=== PATIENT | female | born 1990 | race Caucasian/White ===

== ENCOUNTER 2017-11-14 11:02 | Emergency (ER) | payer OTHER ==
[~2017-11-14] VITALS: Ht 160 cm; Wt 60.0 kg
[2017-11-14 11:09] VITALS: BP 176/90; PULSE 95; RESP 18; TEMP 98.4; O2SAT 100
[2017-11-14] MEDS ORDERED: [UNRECOGNIZED DRUG - REMARK] (12:07)
[2017-11-14] MEDS ORDERED: PRENATAL VIT (12:07)
[2017-11-14 13:53] LABS: BACTERIA, URINE RARE /hpf; BILIRUBIN, URINE NEG (NEG); BLOOD, URINE MOD (NEG); GLUCOSE,URINE NEG (NEG); KETONE, URINE 10 mg/dL (NEG); MUCUS URINE MOD /lpf (OCC); NITRITE,URINE NEG (NEG); PH, URINE 5.5 (5.0-8.5); SQUAMOUS EPITHELIAL CELL URINE 3 /hpf (0-5); URINE COLOR YELLOW (YELLW/STRAW); URINE LEUKOCYTE ESTERASE NEG (NEG)
--- NOTE | 2017-11-14 15:04 | RADRPT ---
EXAM DATE/TIME: 11/14/2017 13:34 [place] COMPARISON: No previous studies available for comparison. INDICATIONS : Pelvic pain and bleeding. LAB(S): [facility] MEDICAL HISTORY : Thyroid disease. SURGICAL HISTORY : None. ENCOUNTER: Initial ACUITY: 1 day PAIN SCORE: 3/10 LOCATION: Bilateral pelvis MEASUREMENTS: UTERUS: 7.8 x 4.7 x 4.1 cm ENDOMETRIAL STRIPE: 7 mm RIGHT OVARY: 2.5 x 2.5 x 2.1 cm LEFT OVARY: 3.2 x 2.3 x 1.7 cm FREE FLUID: Yes Cul de sac. CROWN RUMP LENGTH: Not visible = WKS DAYS FHR: Not visible BPM FINDINGS: UTERUS: The myometrium has homogeneous echotexture without mass. RIGHT OVARY: Ovary contains no mass or significant cystic lesion. LEFT OVARY: Ovary contains no mass or significant cystic lesion. MISCELLANEOUS: Small amount free fluid. CONCLUSION: 1. Follicular cysts in the ovaries. Small amount free fluid the pelvis. No evidence for intrauterine on ultrasound. Serafin Carl MD on November 14, 2017 at 15:01 Board Certified Radiologist. This report was verified electronically.
--- NOTE | 2017-11-14 15:28 | PD ---
HPI . Bleeding and Chief Complaint: Related Problem Time Seen by Provider: 12:47 Travel History International Travel<30 days: No Contact w/Intl Traveler<30days: No Traveled to known affect area: No History of Present Illness HPI This patient presents stating that she is about 6 weeks and that she had the acute onset of right-sided pelvic pain last night associated with some heavy vaginal bleeding. She suffers from infertility and has been taking hormonal therapy to assist with conception. Her last normal menstrual period was about 6 weeks ago. She states that she was seen by her motorcycle racer yesterday for routine checkup. She had a quantitative hCG done at that time and was told to return in 2 days for a repeat quantitative hCG. However, she has subsequently developed pelvic pain and bleeding. She states that she called her motorcycle racer and was instructed to come here for further evaluation. Her symptoms have improved. She reports very minimal spotting at this time. PFSH Past Medical History Thyroid Disease: Yes ?: LMP: 10/09/17 Social History Alcohol Use: No Tobacco Use: No Substance Use: No Allergies-Medications (Allergen,Severity, Reaction): Coded Allergies: No Known Allergies (Verified Allergy, Unknown, 11/14/17) Reported Meds & Prescriptions Reported Meds & Active Scripts Active Reported [ Vit] DAILY [Unk Thyroid] DAILY Review of Systems Except as stated in HPI: all other systems reviewed are Neg Physical Exam Narrative GENERAL: Awake and alert and in no acute distress. SKIN: Warm and dry. Normal color and turgor. HEAD: Normocephalic/atraumatic. EYES: Pupils are equal. Extraocular movements are intact. Bili NECK: Normal range of motion. CARDIOVASCULAR: Regular rate and rhythm. RESPIRATORY: Nonlabored respirations. ABDOMEN: Abdomen is soft. Delete MUSCULOSKELETAL: Atraumatic. NEUROLOGICAL: Nonfocal. PSYCHIATRIC: Appropriate mood and affect. Data Data Last Documented VS Vital Signs Date Time Temp Pulse Resp B/P (MAP) Pulse Ox O2 Delivery O2 Flow Rate FiO2 11/14/17 11:09 98.4 95 18 176/90 (118) 100 Orders Orders Beta Hcg (Quant/Titer) (11/14/17 12:49) Complete Rh (11/14/17 12:49) Us Pelvis (Ques Pr/Ect)W Trans (11/14/17 ) Urinalysis - C+S If Indicated (11/14/17 12:49) Ed Urine Pregnancytest Poc (11/14/17 12:49) Labs Laboratory Tests Test 11/14/17 13:10 Urine Color YELLOW Urine Turbidity CLEAR Urine pH 5.5 Urine Specific [place] 1.027 Urine Protein TRACE mg/dL Urine Glucose (UA) NEG mg/dL Urine Ketones 10 mg/dL Urine Occult Blood MOD Urine Nitrite NEG Urine Bilirubin NEG Urine Urobilinogen LESS THAN 2.0 MG/DL Urine Leukocyte Esterase NEG Urine RBC 2 /hpf Urine WBC 1 /hpf Urine Squamous Epithelial Cells 3 /hpf Urine Bacteria RARE /hpf Urine Mucus MOD /lpf Microscopic Urinalysis Comment CULT NOT INDICATED Human Chorionic Gonadotropin, Quant 804 MIU/ML MDM Medical Decision Making Medical Screen Exam Complete: Yes Emergency Medical Condition: Yes Differential Diagnosis Differential diagnosis of bleeding in includes but is not limited to physiologic bleeding, spontaneous AB, ectopic , placenta previa Narrative Course This patient presents stating that she is about 6 weeks and had onset of right pelvic pain associated with bleeding last night. Symptoms are improved today. Quantitative hCG is 804. Blood type is AB+. Last Impressions Pelvis Ultrasound 11/14/17 0000 Signed Impressions: Service Date/Time: Tuesday, November 14, 2017 13:34 - CONCLUSION: 1. Follicular cysts in the ovaries. Small amount free fluid the pelvis. No evidence for intrauterine on ultrasound. Serafin Carl MD The patient is aware of all these findings. She will continue to follow up with her STORE SPECIALIST. Diagnosis Primary Impression: Threatened miscarriage Additional Instructions: Your quantitative hCG here today was 800. The ultrasound shows no evidence of an IUP. Blood type is AB+. Disposition: 01 DISCHARGE HOME Condition: Stable Alejandra Thomas MD Nov 14, 2017 15:28
== END 2017-11-14 15:36 | disposition home or self-care (01) ==
LOC: NEPD 11:02
DX: O20.0 Threatened abortion (principal); Z3A.01 Less than 8 weeks gestation of pregnancy
CPT/HCPCS: 76700; 76817; 81001; 84702; 84703; 86901; 99284